=== PATIENT | female | born 1980 | race Caucasian/White ===

== ENCOUNTER 2016-05-02 09:22 | Emergency (ER) | payer OTHER ==
--- NOTE | 2016-05-02 10:19 | DIAGNOSTIC IMAGING REPORT ---
PROCEDURE: XR ANKLE 3 OR 4 VIEWS - RIGHT INDICATION: TRAUMA/INJURY TECHNIQUE: Six views. COMPARISON: None. FINDINGS: Osseous structures and joint spaces are normal. IMPRESSION: 1. Normal right ankle.
--- NOTE | 2016-05-02 10:20 | DIAGNOSTIC IMAGING REPORT ---
PROCEDURE: XR TIBIA AND FIBULA - RIGHT INDICATION: TRAUMA/INJURY TECHNIQUE: AP and lateral views. COMPARISON: None. FINDINGS: Osseous structures are normal. IMPRESSION: 1. Normal right tibia and fibula.
--- NOTE | 2016-05-02 10:24 | ED CLINICAL REPORT ---
Clinical Report - Physicians/Mid Levels [facility] [address] [place] [address] 05/02/2016 9:24 Patient: ROCCO BALLARD Time Seen: 09:33. Arrived- By private vehicle. Historian- patient. HISTORY OF PRESENT ILLNESS Chief Complaint: Injury to the right ankle. The injury happened about 2 months ago. The patient sustained a twisting injury. Occurred at home. Patient is experiencing moderate pain. Patient denies injury to the head or neck. No other injury. REVIEW OF SYSTEMS The patient complains of pain on weight bearing. She has had swelling. No tingling, weakness, numbness, suspected foreign body or skin laceration. PAST HISTORY PCP: Mukul PROBLEMS: Ureterolithiasis. ADD Prior [place] from 2 stories height with [place] [facility] [place] nasal fx SURGERY HX: Tonsillectomy. Seroma lt leg. SOCIAL HISTORY Never smoker. Occasional alcohol use. No drug use. Residence: [facility]. ADDITIONAL NOTES The nursing notes have been reviewed. PHYSICAL EXAM Vital Signs: 05/02/2016 09:34 BP: 121/89. HR: 90. RR: 16. O2 saturation: 97%. Temp: 97.8 F. Appearance: Alert. Oriented X3. No acute distress. Head: Head atraumatic. Eyes: No scleral icterus or pale conjunctivae. ENT: Nose normal. Neck: Normal inspection. Neck supple. CVS: Normal heart rate and rhythm. Heart sounds normal. Pulses normal. Respiratory: No respiratory distress. Breath sounds normal. Chest nontender. Abdomen: No visible injury. Soft and nontender. Back: Normal inspection. No tenderness. Skin: Skin intact. Skin warm and dry. Extremities: Right lateral ankle: moderate tenderness of the lateral ligaments and lateral malleolus. Limited ROM secondary to pain. Neurovascular intact distally. No ligamentous laxity present. No erythema, swelling, laceration, abrasion or ecchymosis. No puncture wound, foreign body or deformity. ( +proximal fibular tenderness No posterior calf tenderness). Gait: Limping gait. Neuro, Vascular and Tendons: Vascular status intact. Sensation intact. Motor intact. Tendon function intact. Neuro: Oriented X 3. No motor deficit. LABS, X-RAYS, AND EKG Rt Tib/Fib X-ray: No fracture. Normal alignment. No bony lesion, air in the soft tissue or foreign body. Soft tissues normal. Joint spaces normal. Views: AP and lateral. Technique: good. The X-rays were interpreted contemporaneously by me. Rt Ankle X-ray: (incomplete unior of anterior, distal tibia avulsion fx). Views: AP, lateral and oblique. Technique: good. A comparison with prior films (x-rays done 03/22/2016: avulsion fx of the distal tibia anteriorly, which was probably subacute). PROGRESS AND PROCEDURES PROCEDURES (Pt has boot at home - will use this. Crutches given to patient and training). Patient/family counseled. Old ED and clinic records reviewed. Disposition: Discharged. Condition: stable and improved. CLINICAL IMPRESSION Closed nondisplaced avulsion fracture of the distal aspect of the right tibia. No angulated fracture of the tibia. INSTRUCTIONS Apply ice. Use crutches. Wear boot orthosis. Elevate affected areas above chest level. Warnings: GENERAL WARNINGS: Return or contact your physician immediately if your condition worsens or changes unexpectedly, if not improving as expected, or if other problems arise. Prescription Medications: Ibuprofen 600mg tablets: take 1 tablet orally every 8 hours as needed for pain. Dispense thirty (30). No refills. OTC Medications: Acetaminophen (available over the counter): take according to label instructions. Follow-up: Follow up with your doctor in about three days. Follow-up with: Sriram Hong DPM, Podiatry, , [address], [place], [address] Follow up in about two days. Call for the next available appointment. (Electronically signed by Hood Dominguez DO 05/02/2016 23:15)
--- NOTE | 2016-05-02 10:24 | ED NURSING NOTES ---
Clinical Report - Nurses [facility] [address] [place] [address] 05/02/2016 9:24 Patient: ROCCO BALLARD TRIAGE Triage time 09:30. Acuity: LEVEL 4. Chief Complaint: Location of symptoms- right ankle (old injury still has pain). Alert. --09:33 Melanie Duque R.N. 09:34 05/02/16. BP: 121/89. HR: 90. RR: 16. O2 saturation: 97%. Temp: 97.8 F. Pain level now 10/27. --09:36 Melanie Duque R.N. Weight: 108.8 kg stated. Height/Length: 62 inches Per Patient. BMI: 43.9. --09:31 Melanie Duque R.N. Medications Adderall Oral. --09:32 Melanie Duque R.N. Allergies Codeine. --09:32 Melanie Duque R.N. History Arrived by private vehicle. Historian: patient. Primary physician (Mukul). This occurred (about 2 months). Treatment AUDIT LEAD: (boot). SOCIAL HX: Never smoker. Occasional alcohol use. No drug use. --09:33 Melanie Duque R.N. PROBLEMS: Ureterolithiasis. --09:32 Melanie Duque R.N. ADDITIONAL SURGERIES: Tonsillectomy. --09:32 Melanie Duque R.N. PHYSICAL ASSESSMENT GENERAL / NEURO / PSYCH: Oriented X 4. Appears anxious. EXTREMITIES: Right lateral ankle. SKIN: Skin is warm. --09:36 Melanie Duque R.N. NURSING PROGRESS NOTES Patient identifiers checked. Call light placed in reach. Side rails up x 1. --09:37 Melanie Duque R.N. 10:53 05/02/16. ( Tried to DC pt, pt requesting crutches). --10:53 Ozzy Martin R.N. DISPOSITION / DISCHARGE 10:44 05/02/16. Condition at departure: improved. The goals identified in the patient's plan of care were met. No learning barriers present. Discharge instructions provided and reviewed with the patient. Reviewed warnings. Reviewed medication(s). Treatments reviewed. Reviewed referral to a gear cutting machine set up operator. Patient verbalized understanding. Written instructions provided in Ivorian. The patient was discharged by the physician. She was discharged home. FALL RISK ASSESSMENT: Fall risk assessment completed. No fall risk identified. --10:44 Ozzy Martin R.N. 10:44 05/02/16. BP: 118/70. HR: 80. RR: 14. O2 saturation: 100% on room air. Temp: 98.1 F (oral). --10:44 Ozzy Martin R.N. Departure time: 10:58. No learning barriers present. Patient verbalized understanding. Written instructions provided in Ivorian. The patient was discharged home. She left the Emergency Department ambulatory and via private vehicle. Patient driving. --10:59 Melanie Duque R.N. Locked/Released at 05/02/2016 11:01 by Melanie Duque R.N.
--- NOTE | 2016-05-02 10:24 | ED ORDER SUMMARY ---
..... Patient: ROCCO BALLARD OrderSheet [facility] VisitID: [id number] [address] [place] [address] 35y, F Registration Date/Time: 05/02/2016 ORDER SHEET Weight: 108.8 kg (stated) Allergies: Codeine GENERAL ORDERS: Ankle 3 or 4V Right (weight bearing view if possible) Urgent (09:41 05/02/2016 [facility] DO) (Ack 9:45 LTapper) (10:43 JBclaudettey R.N.) Tibia/Fibula Right Urgent (09:42 05/02/2016 [facility] DO) (Ack 9:45 LTapper) (10:43 Lennox R.N.) Crutches (10:46 05/02/2016 [facility]) (10:48 DMaziarka R.N.) (Cancelled: Patient [id number] DMaziarka R.N.) MEDICATION ORDERS: IV FLUIDS: ORDER SHEET NOTES: [Electronically signed by Melanie Duque R.N. (11:05/02/2016)] [Electronically signed by Hood Dominguez DO (23:15 05/02/2016)] [Electronically locked/signed by Melanie Duque R.N. (11:05/02/2016)]
--- NOTE | 2016-05-02 10:24 | ED CLINICAL REPORT ---
Clinical Report - Physicians/Mid Levels [facility] [address] [place] [address] 05/02/2016 9:24 Patient: ROCCO BALLARD Time Seen: 09:33. Arrived- By private vehicle. Historian- patient. HISTORY OF PRESENT ILLNESS Chief Complaint: Injury to the right ankle. The injury happened about 2 months ago. The patient sustained a twisting injury. Occurred at home. Patient is experiencing moderate pain. Patient denies injury to the head or neck. No other injury. REVIEW OF SYSTEMS The patient complains of pain on weight bearing. She has had swelling. No tingling, weakness, numbness, suspected foreign body or skin laceration. PAST HISTORY PCP: Mkuul PROBLEMS: Ureterolithiasis. ADD Prior fall from 2 stories height with eval [place] [facility] [place] - only injury nasal fx SURGERY HX: Tonsillectomy. Seroma lt leg. SOCIAL HISTORY Never smoker. Occasional alcohol use. No drug use. Residence: [facility]. ADDITIONAL NOTES The nursing notes have been reviewed. PHYSICAL EXAM Vital Signs: 05/02/2016 09:34 BP: 121/89. HR: 90. RR: 16. O2 saturation: 97%. Temp: 97.8 F. Appearance: Alert. Oriented X3. No acute distress. Head: Head atraumatic. Eyes: No scleral icterus or pale conjunctivae. ENT: Nose normal. Neck: Normal inspection. Neck supple. CVS: Normal heart rate and rhythm. Heart sounds normal. Pulses normal. Respiratory: No respiratory distress. Breath sounds normal. Chest nontender. Abdomen: No visible injury. Soft and nontender. Back: Normal inspection. No tenderness. Skin: Skin intact. Skin warm and dry. Extremities: Right lateral ankle: moderate tenderness of the lateral ligaments and lateral malleolus. Limited ROM secondary to pain. Neurovascular intact distally. No ligamentous laxity present. No erythema, swelling, laceration, abrasion or ecchymosis. No puncture wound, foreign body or deformity. ( +proximal fibular tenderness No posterior calf tenderness). Gait: Limping gait. Neuro, Vascular and Tendons: Vascular status intact. Sensation intact. Motor intact. Tendon function intact. Neuro: Oriented X 3. No motor deficit. LABS, X-RAYS, AND EKG Rt Tib/Fib X-ray: No fracture. Normal alignment. No bony lesion, air in the soft tissue or foreign body. Soft tissues normal. Joint spaces normal. Views: AP and lateral. Technique: good. The X-rays were interpreted contemporaneously by me. Rt Ankle X-ray: (incomplete unior of anterior, distal tibia avulsion fx). Views: AP, lateral and oblique. Technique: good. A comparison with prior films (x-rays done 03/22/2016: avulsion fx of the distal tibia anteriorly, which was probably subacute). PROGRESS AND PROCEDURES PROCEDURES (Pt has boot at home - will use this. Crutches given to patient and training). Patient/family counseled. Old ED and clinic records reviewed. Disposition: Discharged. Condition: stable and improved. CLINICAL IMPRESSION Closed nondisplaced avulsion fracture of the distal aspect of the right tibia. No angulated fracture of the tibia. INSTRUCTIONS Apply ice. Use crutches. Wear boot orthosis. Elevate affected areas above chest level. Warnings: GENERAL WARNINGS: Return or contact your physician immediately if your condition worsens or changes unexpectedly, if not improving as expected, or if other problems arise. Prescription Medications: Ibuprofen 600mg tablets: take 1 tablet orally every 8 hours as needed for pain. Dispense thirty (30). No refills. OTC Medications: Acetaminophen (available over the counter): take according to label instructions. Follow-up: Follow up with your doctor in about three days. Follow-up with: Sriram Hong DPM, Podiatry, , [address], [place], [address] Follow up in about two days. Call for the next available appointment. (Electronically signed by Hood Dominguez DO 05/02/2016 23:15)
--- NOTE | 2016-05-02 10:24 | ED ORDER SUMMARY ---
..... Patient: ROCCO BALLARD OrderSheet [facility] VisitID: [id number] [address] [place] [address] 35y, F Registration Date/Time: 05/02/2016 ORDER SHEET Weight: 108.8 kg (stated) Allergies: Codeine GENERAL ORDERS: Ankle 3 or 4V Right (weight bearing view if possible) Urgent (09:41 05/02/2016 [facility] DO) (Ack 9:45 LTapper) (10:43 JBclaudettey R.N.) Tibia/Fibula Right Urgent (09:42 05/02/2016 [facility] DO) (Ack 9:45 LTapper) (10:43 Lennox R.N.) Crutches (10:46 [facility]02/2016 [facility]) (10:48 DMaziarka R.N.) (Cancelled: Patient [id number] DMaziarka R.N.) MEDICATION ORDERS: IV FLUIDS: ORDER SHEET NOTES: [Electronically signed by Melanie Duque R.N. (11:05/02/2016)] [Electronically signed by Hood Dominguez DO (23:15 05/02/2016)] [Electronically locked/signed by Melanie Duque R.N. (11:05/02/2016)]
--- NOTE | 2016-05-02 10:24 | ED NURSING NOTES ---
Clinical Report - Nurses [facility] [address] [place] [address] 05/02/2016 9:24 Patient: ROCCO BALLARD TRIAGE Triage time 09:30. Acuity: LEVEL 4. Chief Complaint: Location of symptoms- right ankle (old injury still has pain). Alert. --09:33 Melanie Duque R.N. 09:34 05/02/16. BP: 121/89. HR: 90. RR: 16. O2 saturation: 97%. Temp: 97.8 F. Pain level now 10/27. --09:36 Melanie Duque R.N. Weight: 108.8 kg stated. Height/Length: 62 inches Per Patient. BMI: 43.9. --09:31 Melanie Duque R.N. Medications Adderall Oral. --09:32 Melanie Duque R.N. Allergies Codeine. --09:32 Melanie Duque R.N. History Arrived by private vehicle. Historian: patient. Primary physician (Mukul). This occurred (about 2 months). Treatment DEPARTMENT [employer]ITY: (boot). SOCIAL HX: Never smoker. Occasional alcohol use. No drug use. --09:33 Melanie Duque R.N. PROBLEMS: Ureterolithiasis. --09:32 Melanie Duque R.N. ADDITIONAL SURGERIES: Tonsillectomy. --09:32 Melanie Duque R.N. PHYSICAL ASSESSMENT GENERAL / NEURO / PSYCH: Oriented X 4. Appears anxious. EXTREMITIES: Right lateral ankle. SKIN: Skin is warm. --09:36 Melanie Duque R.N. NURSING PROGRESS NOTES Patient identifiers checked. Call light placed in reach. Side rails up x 1. --09:37 Melanie Duque R.N. 10:53 05/02/16. ( Tried to DC pt, pt requesting crutches). --10:53 Ozzy Martin R.N. DISPOSITION / DISCHARGE 10:44 05/02/16. Condition at departure: improved. The goals identified in the patient's plan of care were met. No learning barriers present. Discharge instructions provided and reviewed with the patient. Reviewed warnings. Reviewed medication(s). Treatments reviewed. Reviewed referral to a pattern generator operator. Patient verbalized understanding. Written instructions provided in Barbadian. The patient was discharged by the physician. She was discharged home. FALL RISK ASSESSMENT: Fall risk assessment completed. No fall risk identified. --10:44 Ozzy Martin R.N. 10:44 05/02/16. BP: 118/70. HR: 80. RR: 14. O2 saturation: 100% on room air. Temp: 98.1 F (oral). --10:44 Ozzy Martin R.N. Departure time: 10:58. No learning barriers present. Patient verbalized understanding. Written instructions provided in Barbadian. The patient was discharged home. She left the Emergency Department ambulatory and via private vehicle. Patient driving. --10:59 Melanie Duque R.N. Locked/Released at 05/02/2016 11:01 by Melanie Duque R.N.
--- NOTE | 2016-05-02 23:15 | ED DISCHARGE INSTRUCTIONS ---
Patient: ROCCO BALLARD General Instructions [facility] VisitID: [id number] [address] [place] [address] 35y, F Registration Date/Time: 05/02/2016 Closed nondisplaced avulsion fracture of the distal aspect of the right tibia. No angulated fracture of the tibia. INSTRUCTIONS Apply ice. Use crutches. Wear boot orthosis. Elevate affected areas above chest level. Warnings: GENERAL WARNINGS: Return or contact your physician immediately if your condition worsens or changes unexpectedly, if not improving as expected, or if other problems arise. Prescription Medications: Ibuprofen 600mg tablets: take 1 tablet orally every 8 hours as needed for pain. Dispense thirty (30). No refills. OTC Medications: Acetaminophen (available over the counter): take according to label instructions. Follow-up: Follow up with your doctor in about three days. Follow-up with: Sriram Hong DPM, Podiatry, , [address] [facility], [place], [id number] Follow up in about two days. Call for the next available appointment. ADDITIONAL INFORMATION Fracture:Ankle You have a break (fracture) of the ankle. This causes local pain, swelling and sometimes bruising. A fracture is treated with a splint or cast or special boot. It will take about 4-6 weeks for the fracture to heal. Surgery may be needed to fix severe injuries. Home Care: You will be given a splint, cast or boot to prevent movement at the ankle joint. Unless you were told otherwise, use crutches or a walker and do not bear weight on the injured leg until cleared by your doctor to do so. (Crutches and walkers can be rented at many pharmacies and surgical/orthopedic supply stores). Do not put weight on a splint; it will break. Keep your leg elevated to reduce pain and swelling. When sleeping, place a pillow under the injured leg. When sitting, support the injured leg so it is level with your waist. This is very important during the first 48 hours. Apply an ice pack (ice cubes in a plastic bag, wrapped in a towel) over the injured area for 20 minutes every 1-2 hours the first day. You can place the ice pack directly over the splint/cast. Continue with ice packs 3-4 times a day for the next two days, then as needed for the relief of pain and swelling. Keep the cast/splint/boot completely dry at all times. Bathe with your cast/splint/boot out of the water, protected with a large plastic bag, rubber-banded at the top end. If a boot or fiberglass cast/splint gets wet, you can dry it with a hair-dryer. You may use acetaminophen (Tylenol) or ibuprofen (Motrin, Advil) to control pain, unless another pain medicine was prescribed. [ NOTE : If you have chronic liver or kidney disease or ever had a stomach ulcer or GI bleeding, talk with your doctor before using these medicines.] Follow Up with your doctor in one week, or as advised by our staff, to be sure the bone is healing properly. If you were given a splint, it may be changed to a cast at your follow-up visit. [NOTE: A radiologist will review any X-rays that were taken. We will notify you of any new findings that may affect your care.] Get Prompt Medical Attention If Any Of The Following Occur: The plaster cast or splint becomes wet or soft The fiberglass cast or splint remains wet for more than 24 hours Increased tightness or pain under the cast or splint Toes become swollen, cold, blue, numb or tingly Crutch Walking Crutch Adjustment Make sure the crutches you use are adjusted to fit you. When you stand, there should be room to fit 2-3 fingers between the top of the crutch and your armpit. Your elbow should be slightly bent when holding the hand treating inspector. Crutch Walking: Place the crutches forward 12" in front of and 6" to the side of your feet. Lean your weight forward as you push down on the handgrips. Your weight should be on your hands and yourstrong leg, not your armpits . Let your body swing through, landing on the strong leg. Advance the crutches forward again. The crutch and the injured leg should move together. Going Up Steps: ("Up with the good") With both crutches on the same step as your feet, push down on the handgrips. Balancing with very light pressure on the weak leg, let your hands support your weight as you raise your strong leg onto the next higher step. Transfer all your weight to your strong leg (still bent) as you move the crutches up to the next step alongside the strong leg. With your weight evenly balanced on the two crutches and your strong leg, straighten your strong knee as you raise the weak leg up to the next step. Going Down Steps: ("Down with the bad") With both crutches on the same step as your feet, push down on the handgrips. With your weight evenly balanced on the two crutches and your strong leg, bend your strong knee as you lower the weak leg down to the next step. Let your strong leg support you (still bent) as you move the crutches down alongside the weak leg. Transfer your weight to your hands, balancing with very light pressure on the weak leg as you lower your strong leg alongside your weak leg. Ibuprofen Oral tablet What is this medicine? IBUPROFEN (eye BYOO proe fen) is a non-steroidal anti-inflammatory drug (NSAID). It is used for dental pain, fever, headaches or migraines, osteoarthritis, rheumatoid arthritis, or painful monthly periods. It can also relieve minor aches and pains caused by a cold, flu, or sore throat. How should I use this medicine? Take this medicine by mouth with a glass of water. Follow the directions on the prescription label. Take this medicine with food if your stomach gets upset. Try to not lie down for at least 10 minutes after you take the medicine. Take your medicine at regular intervals. Do not take your medicine more often than directed. A special MedGuide will be given to you by the pharmacist with each prescription and refill. Be sure to read this information carefully each time. Talk to your machinery engineer regarding the use of this medicine in children. Special care may be needed. What side effects may I notice from receiving this medicine? Side effects that you should report to your doctor or health care connector as soon as possible: allergic reactions like skin rash, itching or hives, swelling of the face, lips, or tongue black or bloody stools, blood in the urine or in vomit breathing problems changes in vision chest pain general ill feeling or flu-like symptoms nausea or vomiting redness, blistering, peeling or loosening of the skin, including inside the mouth slurred speech or weakness on one side of the body stomach pain unexplained weight gain or swelling unusually weak or tired yellowing of eyes or skin Side effects that usually do not require medical attention (report to your doctor or health care connector if they continue or are bothersome): constipation or diarrhea dizziness gas or heartburn stomach upset What may interact with this medicine? Do not take this medicine with any of the following medications: cidofovir ketorolac methotrexate pemetrexed This medicine may also interact with the following medications: alcohol aspirin diuretics lithium other drugs for inflammation like prednisone warfarin What if I miss a dose? If you miss a dose, take it as soon as you can. If it is almost time for your next dose, take only that dose. Do not take double or extra doses. Where should I keep my medicine? Keep out of the reach of children. Store at room temperature between 15 and 30 degrees C (59 and 86 degrees F). Keep container tightly closed. Throw away any unused medicine after the expiration date. What should I tell my health care provider before I take this medicine? They need to know if you have any of these conditions: asthma cigarette smoker drink more than 3 alcohol containing drinks a day heart disease or circulation problems such as heart failure or leg edema (fluid retention) high blood pressure kidney disease liver disease stomach bleeding or ulcers an unusual or allergic reaction to ibuprofen, aspirin, other NSAIDS, other medicines, foods, dyes, or preservatives or trying to get breast-feeding What should I watch for while using this medicine? Tell your doctor or healthcare professional if your symptoms do not start to get better or if they get worse. This medicine does not prevent heart attack or stroke. In fact, this medicine may increase the chance of a heart attack or stroke. The chance may increase with longer use of this medicine and in people who have heart disease. If you take aspirin to prevent heart attack or stroke, talk with your doctor or health care connector. Do not take other medicines that contain aspirin, ibuprofen, or naproxen with this medicine. Side effects such as stomach upset, nausea, or ulcers may be more likely to occur. Many medicines available without a prescription should not be taken with this medicine. This medicine can cause ulcers and bleeding in the stomach and intestines at any time during treatment. Ulcers and bleeding can happen without warning symptoms and can cause . To reduce your risk, do not smoke cigarettes or drink alcohol while you are taking this medicine. You may get drowsy or dizzy. Do not drive, use machinery, or do anything that needs mental alertness until you know how this medicine affects you. Do not stand or sit up quickly, especially if you are an older patient. This reduces the risk of dizzy or fainting spells. This medicine can cause you to bleed more easily. Try to avoid damage to your teeth and gums when you brush or floss your teeth. Acetaminophen Oral tablet What is this medicine? ACETAMINOPHEN (a set a AREN sudhakar fen) is a pain reliever. It is used to treat mild pain and fever. How should I use this medicine? Take this medicine by mouth with a glass of water. Follow the directions on the package or prescription label. Take your medicine at regular intervals. Do not take your medicine more often than directed. Talk to your machinery engineer regarding the use of this medicine in children. While this drug may be prescribed for children as young as 6 years of age for selected conditions, precautions do apply. What side effects may I notice from receiving this medicine? Side effects that you should report to your doctor or health care connector as soon as possible: allergic reactions like skin rash, itching or hives, swelling of the face, lips, or tongue breathing problems fever or sore throat redness, blistering, peeling or loosening of the skin, including inside the mouth trouble passing urine or change in the amount of urine unusual bleeding or bruising unusually weak or tired yellowing of the eyes or skin Side effects that usually do not require medical attention (report to your doctor or health care connector if they continue or are bothersome): headache nausea, stomach upset What may interact with this medicine? alcohol imatinib isoniazid other medicines with acetaminophen What if I miss a dose? If you miss a dose, take it as soon as you can. If it is almost time for your next dose, take only that dose. Do not take double or extra doses. Where should I keep my medicine? Keep out of reach of children. Store at room temperature between 20 and 25 degrees C (68 and 77 degrees F). Protect from moisture and heat. Throw away any unused medicine after the expiration date. What should I tell my health care provider before I take this medicine? They need to know if you have any of these conditions: if you frequently drink alcohol containing drinks liver disease an unusual or allergic reaction to acetaminophen, other medicines, foods, dyes or preservatives or trying to get breast-feeding What should I watch for while using this medicine? Tell your doctor or health care connector if the pain lasts more than 10 days (5 days for children), if it gets worse, or if there is a new or different kind of pain. Also, check with your doctor if a fever lasts for more than 3 days. Do not take other medicines that contain acetaminophen with this medicine. Always read labels carefully. If you have questions, ask your doctor or pharmacist. If you take too much acetaminophen get medical help right away. Too much acetaminophen can be very dangerous and cause liver damage. Even if you do not have symptoms, it is important to get help right away. You have been given the following additional information: Fracture, Ankle (General) Crutch Walking Ibuprofen Oral tablet Acetaminophen Oral tablet (Electronically signed by Hood Dominguez DO 05/02/2016 23:15)
--- NOTE | 2016-05-02 23:15 | ED MAR SUMMARY ---
..... Medication Administration Record [facility] [address] [place] [id number] Patient: ROCCO BALLARD Visit ID: [id number] 35y, F Weight: 108.8 kg Height/Length: 62 in BMI: 43.9 ALLERGIES: Codeine
--- NOTE | 2016-05-02 23:15 | ED DISCHARGE INSTRUCTIONS ---
Patient: ROCCO BALLARD General Instructions [facility] VisitID: [id number] [address] [place] [address] 35y, F Registration Date/Time: 05/02/2016 Closed nondisplaced avulsion fracture of the distal aspect of the right tibia. No angulated fracture of the tibia. INSTRUCTIONS Apply ice. Use crutches. Wear boot orthosis. Elevate affected areas above chest level. Warnings: GENERAL WARNINGS: Return or contact your physician immediately if your condition worsens or changes unexpectedly, if not improving as expected, or if other problems arise. Prescription Medications: Ibuprofen 600mg tablets: take 1 tablet orally every 8 hours as needed for pain. Dispense thirty (30). No refills. OTC Medications: Acetaminophen (available over the counter): take according to label instructions. Follow-up: Follow up with your doctor in about three days. Follow-up with: Sriram Hong DPM, Podiatry, , [address], [place], [address] Follow up in about two days. Call for the next available appointment. ADDITIONAL INFORMATION Fracture:Ankle You have a break (fracture) of the ankle. This causes local pain, swelling and sometimes bruising. A fracture is treated with a splint or cast or special boot. It will take about 4-6 weeks for the fracture to heal. Surgery may be needed to fix severe injuries. Home Care: You will be given a splint, cast or boot to prevent movement at the ankle joint. Unless you were told otherwise, use crutches or a walker and do not bear weight on the injured leg until cleared by your doctor to do so. (Crutches and walkers can be rented at many pharmacies and surgical/orthopedic supply stores). Do not put weight on a splint; it will break. Keep your leg elevated to reduce pain and swelling. When sleeping, place a pillow under the injured leg. When sitting, support the injured leg so it is level with your waist. This is very important during the first 48 hours. Apply an ice pack (ice cubes in a plastic bag, wrapped in a towel) over the injured area for 20 minutes every 1-2 hours the first day. You can place the ice pack directly over the splint/cast. Continue with ice packs 3-4 times a day for the next two days, then as needed for the relief of pain and swelling. Keep the cast/splint/boot completely dry at all times. Bathe with your cast/splint/boot out of the water, protected with a large plastic bag, rubber-banded at the top end. If a boot or fiberglass cast/splint gets wet, you can dry it with a hair-dryer. You may use acetaminophen (Tylenol) or ibuprofen (Motrin, Advil) to control pain, unless another pain medicine was prescribed. [ NOTE : If you have chronic liver or kidney disease or ever had a stomach ulcer or GI bleeding, talk with your doctor before using these medicines.] Follow Up with your doctor in one week, or as advised by our staff, to be sure the bone is healing properly. If you were given a splint, it may be changed to a cast at your follow-up visit. [NOTE: A radiologist will review any X-rays that were taken. We will notify you of any new findings that may affect your care.] Get Prompt Medical Attention If Any Of The Following Occur: The plaster cast or splint becomes wet or soft The fiberglass cast or splint remains wet for more than 24 hours Increased tightness or pain under the cast or splint Toes become swollen, cold, blue, numb or tingly Crutch Walking Crutch Adjustment Make sure the crutches you use are adjusted to fit you. When you stand, there should be room to fit 2-3 fingers between the top of the crutch and your armpit. Your elbow should be slightly bent when holding the hand testing analyst. Crutch Walking: Place the crutches forward 12" in front of and 6" to the side of your feet. Lean your weight forward as you push down on the handgrips. Your weight should be on your hands and yourstrong leg, not your armpits . Let your body swing through, landing on the strong leg. Advance the crutches forward again. The crutch and the injured leg should move together. Going Up Steps: ("Up with the good") With both crutches on the same step as your feet, push down on the handgrips. Balancing with very light pressure on the weak leg, let your hands support your weight as you raise your strong leg onto the next higher step. Transfer all your weight to your strong leg (still bent) as you move the crutches up to the next step alongside the strong leg. With your weight evenly balanced on the two crutches and your strong leg, straighten your strong knee as you raise the weak leg up to the next step. Going Down Steps: ("Down with the bad") With both crutches on the same step as your feet, push down on the handgrips. With your weight evenly balanced on the two crutches and your strong leg, bend your strong knee as you lower the weak leg down to the next step. Let your strong leg support you (still bent) as you move the crutches down alongside the weak leg. Transfer your weight to your hands, balancing with very light pressure on the weak leg as you lower your strong leg alongside your weak leg. Ibuprofen Oral tablet What is this medicine? IBUPROFEN (eye BYOO proe fen) is a non-steroidal anti-inflammatory drug (NSAID). It is used for dental pain, fever, headaches or migraines, osteoarthritis, rheumatoid arthritis, or painful monthly periods. It can also relieve minor aches and pains caused by a cold, flu, or sore throat. How should I use this medicine? Take this medicine by mouth with a glass of water. Follow the directions on the prescription label. Take this medicine with food if your stomach gets upset. Try to not lie down for at least 10 minutes after you take the medicine. Take your medicine at regular intervals. Do not take your medicine more often than directed. A special MedGuide will be given to you by the pharmacist with each prescription and refill. Be sure to read this information carefully each time. Talk to your bottle labeler regarding the use of this medicine in children. Special care may be needed. What side effects may I notice from receiving this medicine? Side effects that you should report to your doctor or health senior care manager as soon as possible: allergic reactions like skin rash, itching or hives, swelling of the face, lips, or tongue black or bloody stools, blood in the urine or in vomit breathing problems changes in vision chest pain general ill feeling or flu-like symptoms nausea or vomiting redness, blistering, peeling or loosening of the skin, including inside the mouth slurred speech or weakness on one side of the body stomach pain unexplained weight gain or swelling unusually weak or tired yellowing of eyes or skin Side effects that usually do not require medical attention (report to your doctor or health senior care manager if they continue or are bothersome): constipation or diarrhea dizziness gas or heartburn stomach upset What may interact with this medicine? Do not take this medicine with any of the following medications: cidofovir ketorolac methotrexate pemetrexed This medicine may also interact with the following medications: alcohol aspirin diuretics lithium other drugs for inflammation like prednisone warfarin What if I miss a dose? If you miss a dose, take it as soon as you can. If it is almost time for your next dose, take only that dose. Do not take double or extra doses. Where should I keep my medicine? Keep out of the reach of children. Store at room temperature between 15 and 30 degrees C (59 and 86 degrees F). Keep container tightly closed. Throw away any unused medicine after the expiration date. What should I tell my health care provider before I take this medicine? They need to know if you have any of these conditions: asthma cigarette smoker drink more than 3 alcohol containing drinks a day heart disease or circulation problems such as heart failure or leg edema (fluid retention) high blood pressure kidney disease liver disease stomach bleeding or ulcers an unusual or allergic reaction to ibuprofen, aspirin, other NSAIDS, other medicines, foods, dyes, or preservatives or trying to get breast-feeding What should I watch for while using this medicine? Tell your doctor or healthcare professional if your symptoms do not start to get better or if they get worse. This medicine does not prevent heart attack or stroke. In fact, this medicine may increase the chance of a heart attack or stroke. The chance may increase with longer use of this medicine and in people who have heart disease. If you take aspirin to prevent heart attack or stroke, talk with your doctor or health senior care manager. Do not take other medicines that contain aspirin, ibuprofen, or naproxen with this medicine. Side effects such as stomach upset, nausea, or ulcers may be more likely to occur. Many medicines available without a prescription should not be taken with this medicine. This medicine can cause ulcers and bleeding in the stomach and intestines at any time during treatment. Ulcers and bleeding can happen without warning symptoms and can cause . To reduce your risk, do not smoke cigarettes or drink alcohol while you are taking this medicine. You may get drowsy or dizzy. Do not drive, use machinery, or do anything that needs mental alertness until you know how this medicine affects you. Do not stand or sit up quickly, especially if you are an older patient. This reduces the risk of dizzy or fainting spells. This medicine can cause you to bleed more easily. Try to avoid damage to your teeth and gums when you brush or floss your teeth. Acetaminophen Oral tablet What is this medicine? ACETAMINOPHEN (a set a AREN sudhakar fen) is a pain reliever. It is used to treat mild pain and fever. How should I use this medicine? Take this medicine by mouth with a glass of water. Follow the directions on the package or prescription label. Take your medicine at regular intervals. Do not take your medicine more often than directed. Talk to your bottle labeler regarding the use of this medicine in children. While this drug may be prescribed for children as young as 6 years of age for selected conditions, precautions do apply. What side effects may I notice from receiving this medicine? Side effects that you should report to your doctor or health senior care manager as soon as possible: allergic reactions like skin rash, itching or hives, swelling of the face, lips, or tongue breathing problems fever or sore throat redness, blistering, peeling or loosening of the skin, including inside the mouth trouble passing urine or change in the amount of urine unusual bleeding or bruising unusually weak or tired yellowing of the eyes or skin Side effects that usually do not require medical attention (report to your doctor or health senior care manager if they continue or are bothersome): headache nausea, stomach upset What may interact with this medicine? alcohol imatinib isoniazid other medicines with acetaminophen What if I miss a dose? If you miss a dose, take it as soon as you can. If it is almost time for your next dose, take only that dose. Do not take double or extra doses. Where should I keep my medicine? Keep out of reach of children. Store at room temperature between 20 and 25 degrees C (68 and 77 degrees F). Protect from moisture and heat. Throw away any unused medicine after the expiration date. What should I tell my health care provider before I take this medicine? They need to know if you have any of these conditions: if you frequently drink alcohol containing drinks liver disease an unusual or allergic reaction to acetaminophen, other medicines, foods, dyes or preservatives or trying to get breast-feeding What should I watch for while using this medicine? Tell your doctor or health senior care manager if the pain lasts more than 10 days (5 days for children), if it gets worse, or if there is a new or different kind of pain. Also, check with your doctor if a fever lasts for more than 3 days. Do not take other medicines that contain acetaminophen with this medicine. Always read labels carefully. If you have questions, ask your doctor or pharmacist. If you take too much acetaminophen get medical help right away. Too much acetaminophen can be very dangerous and cause liver damage. Even if you do not have symptoms, it is important to get help right away. You have been given the following additional information: Fracture, Ankle (General) Crutch Walking Ibuprofen Oral tablet Acetaminophen Oral tablet (Electronically signed by Hood Dominguez DO 05/02/2016 23:15)
--- NOTE | 2016-05-02 23:15 | ED MAR SUMMARY ---
..... Medication Administration Record [facility] [address] [place], [place] [id number] Patient: ROCCO BALLARD Visit ID: [id number] 35y, F Weight: 108.8 kg Height/Length: 62 in BMI: 43.9 ALLERGIES: Codeine
--- NOTE | 2016-05-02 23:16 | ED MED RECONCILIATION SUMMARY ---
Patient: ROCCO BALLARD Medication Reconciliation Report [facility] VisitID: [id number] [address] [place] [address] 35y, F Registration Date/Time: 05/02/2016 Weight: 108.8 kg Height/Length: 62 in. BMI: 43.9 ALLERGIES: Codeine The patient's Home Medications are listed below: THE FOLLOWING MEDICATIONS NEED TO BE RECONCILED: Adderall Oral The source(s) of the original Home Medication information: Not obtained. The following Medications were given to the patient in the Emergency Department: None. The following Medications were prescribed to the patient: Acetaminophen (available over the counter): take according to label instructions. -- Hood Dominguez DO Ibuprofen 600mg tablets: take 1 tablet orally every 8 hours as needed for pain. Dispense thirty (30). No refills. -- Hood Dominguez DO
--- NOTE | 2016-05-02 23:16 | ED MED RECONCILIATION SUMMARY ---
Patient: ROCCO BALLARD Medication Reconciliation Report [facility] VisitID: [id number] [address] [place] [address] 35y, F Registration Date/Time: 05/02/2016 Weight: 108.8 kg Height/Length: 62 in. BMI: 43.9 ALLERGIES: Codeine The patient's Home Medications are listed below: THE FOLLOWING MEDICATIONS NEED TO BE RECONCILED: Adderall Oral The source(s) of the original Home Medication information: Not obtained. The following Medications were given to the patient in the Emergency Department: None. The following Medications were prescribed to the patient: Acetaminophen (available over the counter): take according to label instructions. -- Hood Dominguez DO Ibuprofen 600mg tablets: take 1 tablet orally every 8 hours as needed for pain. Dispense thirty (30). No refills. -- Hood Dominguez DO
== END 2016-05-02 10:58 | disposition home or self-care (01) ==
LOC: ED SRH 09:22
DX: S82.391A Other fracture of lower end of right tibia, initial encounter for closed fracture (principal); X50.1XXA Overexertion from prolonged static or awkward postures, initial encounter; Y93.9 Activity, unspecified; Y92.009 Unspecified place in unspecified non-institutional (private) residence as the place of occurrence of the external cause; Y99.9 Unspecified external cause status